=== PATIENT | female | born 1960 | race Caucasian/White ===

== ENCOUNTER → 2016-07-14 | Outpatient (CLI) | payer MEDICARE ==
[~2016-07-14] MED LIST: BUTR5DIS T-DERMAL; CHOL20005 PO; CYCL1TAB29 PO; ESTR42.5V VAGINAL; INFL1INJ56 IM; LEVO150T7 PO; LORA1TAB12 PO; METH10TA PO; OXYC30TA PO; TRIA.1%T TOPICAL
[2016-07-14 13:13] LABS: FREE T4 1.22 NG/DL (0.76-1.46)
[2016-07-19 12:15] LABS: OXYCODONE (PERCODAN) POS (NEG)
[2016-07-19 12:17] LABS: METHADONE UR POS (NEG)
== END ==
LOC: PLAB 11:18
PROVIDERS: ATTEND Internal Medicine Endocrinology, Diabetes & Metabolism
DX: E03.9 Hypothyroidism, unspecified (principal); G89.29 Other chronic pain
CPT/HCPCS: 36415; 80307; 84439; 84443; G0480; 80358

== ENCOUNTER → 2016-10-16 | Outpatient (CLI) | payer MEDICARE ==
[~2016-10-16] MED LIST changes: -BUTR5DIS T-DERMAL
[2016-10-20 09:32] LABS: OXYCODONE (PERCODAN) POS (NEG)
[2016-10-20 09:34] LABS: METHADONE UR POS (NEG)
== END ==
LOC: PLAB 13:56
PROVIDERS: ATTEND Family Medicine
DX: E55.9 Vitamin D deficiency, unspecified (principal); G89.29 Other chronic pain
CPT/HCPCS: 36415; 80307; 82306; G0480; 80358

== ENCOUNTER → 2016-12-25 | Outpatient (CLI) | payer MEDICARE ==
[~2016-12-25] MED LIST changes: +CLOB0.055 TOPICAL; +MEDR4PAK PO; +OXYB5TAB10 PO; +PANT20TA2 PO; +PROM12.54 PO
[2016-12-25 16:22] LABS: FREE T4 1.28 NG/DL (0.76-1.46)
== END ==
LOC: PLAB 12:20
PROVIDERS: ATTEND Internal Medicine Endocrinology, Diabetes & Metabolism
DX: E03.9 Hypothyroidism, unspecified (principal)
CPT/HCPCS: 36415; 84439; 84443

== ENCOUNTER → 2017-02-06 | Outpatient (CLI) | payer MEDICARE ==
[2017-02-10 09:13] LABS: METHADONE UR POS (NEG)
== END ==
LOC: PLAB 14:40
PROVIDERS: ATTEND Family Medicine
DX: G89.29 Other chronic pain (principal)
CPT/HCPCS: G0480 ×2; 80358

== ENCOUNTER → 2017-05-29 | Outpatient (CLI) | payer MEDICARE ==
[~2017-05-29] MED LIST changes: -CHOL20005 PO; +CYCL10TA PO; -CYCL1TAB29 PO; +D200CAP PO; -LORA1TAB12 PO; -MEDR4PAK PO; -OXYB5TAB10 PO
== END ==
LOC: PLAB 14:11
PROVIDERS: ATTEND Family Medicine
DX: G89.29 Other chronic pain (principal)
CPT/HCPCS: G0480 ×2; 80358

== ENCOUNTER → 2017-06-27 | Outpatient (CLI) | payer MEDICARE ==
[2017-06-27 17:33] LABS: FREE T4 1.35 NG/DL (0.76-1.46)
== END ==
LOC: PLAB 14:45
PROVIDERS: ATTEND Internal Medicine Endocrinology, Diabetes & Metabolism
DX: E03.9 Hypothyroidism, unspecified (principal)
CPT/HCPCS: 36415; 84439; 84443

== ENCOUNTER → 2017-07-03 | Outpatient (CLI) | payer MEDICARE | LOC: PLAB 11:14 | PROVIDERS: ATTEND Family Medicine | DX: E55.9 Vitamin D deficiency, unspecified (principal); R19.5 Other fecal abnormalities | CPT/HCPCS: 36415; 82306 ==